=== PATIENT | male | born 1985 | race Caucasian/White ===

== ENCOUNTER 2016-06-27 13:41 | Emergency (ER) | payer OTHER ==
[2016-06-27] MEDS ORDERED: IBUPROFEN 800 MG TABLET PO ONE (14:13)
--- NOTE | 2016-06-27 14:14 | ER Document Report ---
ED Medical Screen (RME) - General Chief Complaint: Chest Pain Stated Complaint: CHEST PAIN Mode of Arrival: Ambulatory Information source: Patient Notes: Patient complains of left-sided chest pain that started last night. Patient states pain is worse if he moves, takes a deep breath or if he touches a certain areas his chest wall. Patient denies any trauma or injury. Patient denies cough or cold symptoms. Patient denies fever. Patient denies any personal history of reflux or anxiety. Patient denies any family history of early heart disease. TRAVEL OUTSIDE OF THE [place] IN LAST 30 DAYS: No - Related Data Allergies/Adverse Reactions: No Known Allergies Allergy (Unverified 06/27/16 14:07) Home Medications: Current Home Medications No Home Medications 06/27/16 [History] Physical Exam - Vital signs Vitals: Temp Pulse Resp BP Pulse Ox 98.4 F 78 16 126/73 H 99 06/27/16 13:52 06/27/16 13:52 06/27/16 13:52 06/27/16 13:52 06/27/16 13:52 - Respiratory Respiratory status: No respiratory distress Chest status: Tender, Pain with deep breathing Chest palpation: Tender Course - Vital Signs Vital signs: Temp Pulse Resp BP Pulse Ox 98.4 F 78 16 126/73 H 99 06/27/16 13:52 06/27/16 13:52 06/27/16 13:52 06/27/16 13:52 06/27/16 13:52
--- NOTE | 2016-06-27 14:50 | ER Document Report ---
HPI - HPI Patient complains to provider of: chest pain Onset: Yesterday Onset/Duration: Gradual Quality of pain: Achy Pain Level: 3 Context: Patient complains of left-sided chest pain that started yesterday. Patient denies any cough or cold symptoms. Patient denies any fever. Patient denies any nausea or vomiting. Patient states pain increases with movement and whenever he touches a certain area on his chest wall. Patient denies any injury. Denies any family history of early heart disease Associated Symptoms: Chest pain. denies: Nonproductive cough, Productive cough , Fever, Nausea, Vomiting Exacerbated by: Movement, Deep breathing Relieved by: Remaining still Similar symptoms previously: No Recently seen / treated by doctor: No - ROS ROS below otherwise negative: Yes Systems Reviewed and Negative: Yes All other systems reviewed and negative - CONSTITUTIONAL Constitutional: DENIES: Fever, Chills - NEURO Neurology: DENIES: Headache, Weakness - CARDIOVASCULAR Cardiovascular: REPORTS: Chest pain - RESPIRATORY Respiratory: DENIES: Trouble Breathing, Coughing - GASTROINTESTINAL Gastrointestinal: DENIES: Abdominal Pain, Nausea, Patient vomiting - MUSCULOSKELETAL Musculoskeletal: DENIES: Extremity pain, Back Pain, Neck Pain - DERM Skin Color: Normal Skin Problems: None Past Medical History - General Information source: Patient - Social History Smoking Status: Current Some Day Smoker Frequency of alcohol use: Occasional Drug Abuse: None Occupation: Buttermaker Family History: Reviewed & Not Pertinent. denies: CAD - Medical History Medical History: Negative Surgical Hx: Negative Vertical Provider Document - CONSTITUTIONAL Agree With Documented VS: Yes Exam Limitations: No Limitations General Appearance: WD/WN, No Apparent Distress - INFECTION CONTROL TRAVEL OUTSIDE OF THE [place] IN LAST 30 DAYS: No - HEENT HEENT: Atraumatic, Normocephalic - NECK Neck: Normal Inspection, Supple. negative: Lymphadenopathy-Left, Lymphadenopathy-Right - RESPIRATORY Respiratory: Breath Sounds Normal, No Respiratory Distress. negative: Chest Non -Tender - Left anterior chest wall tenderness with palpation near left fifth midclavicular area, Rales, Rhonchi, Wheezing O2 Sat by Pulse Oximetry: 99 - CARDIOVASCULAR Cardiovascular: Regular Rate, Regular Rhythm, No Murmur - BACK Back: Normal Inspection - MUSCULOSKELETAL/EXTREMETIES Musculoskeletal/Extremeties: ROSA CEE - NEURO Level of Consciousness: Awake, Alert, Appropriate Motor/Sensory: No Motor Deficit - DERM Integumentary: Warm, Dry, No Rash Course - Vital Signs Vital signs: Temp Pulse Resp BP Pulse Ox 98.4 F 78 16 126/73 H 99 06/27/16 13:52 06/27/16 13:52 06/27/16 13:52 06/27/16 13:52 06/27/16 13:52 - Diagnostic Test Radiology reviewed: Reports reviewed - EKG Interpretation by Me EKG shows normal: Sinus rhythm Discharge - Discharge Clinical Impression: Chest wall pain Condition: Stable Disposition: HOME, SELF-CARE Instructions: Anti-Inflammatory Medication ([facility]), Chest Wall Pain ([facility]), Oral Narcotic Medication ([facility]) Additional Instructions: Return immediately for any new or worsening symptoms Followup with your primary care provider, call tomorrow to make a followup appointment Prescriptions: Hydrocodone/Acetaminophen [[place] 5-325 Tablet] 1 each PO Q4 PRN #10 tablet PRN Reason: Naproxen [Naprosyn 250 Nmg Tablet] 1 tab PO BID #14 tablet Forms: Return to Work Referrals: [facility] [Provider Group] - Follow up as needed
[2016-06-27 14:54] VITALS: BP 125/70
--- NOTE | 2016-06-27 15:02 | EKG REPORT ---
SEVERITY:- NORMAL ECG - SINUS RHYTHM : Confirmed by: Margarito Mar MD 27-Jun-2016 15:02:05
== END 2016-06-27 14:54 | disposition home or self-care (01) ==
LOC: ER 13:41
DX: R07.89 Other chest pain (principal); F17.200 Nicotine dependence, unspecified, uncomplicated
CPT/HCPCS: 71020; 93005; 93010; 99285

== ENCOUNTER → 2018-08-18 | Outpatient (CLI) | payer OTHER ==
--- NOTE | 2018-08-18 13:02 | RADIOLOGY REPORT (SQ) ---
EXAM DESCRIPTION: LUMBAR SPINE COMPLETE COMPLETED DATE/TIME: 08/18/2018 12:50 pm REASON FOR STUDY: ACUTE LEFT-SIDED LOW BACK PAIN WITHOUT SCIATICA M54.5 LOW BACK PAIN COMPARISON: None. NUMBER OF VIEWS: Five views including obliques. TECHNIQUE: AP, lateral, oblique, and sacral radiographic images acquired of the lumbar spine. LIMITATIONS: None. FINDINGS: MINERALIZATION: Normal. SEGMENTATION: Normal. No transitional anatomy. ALIGNMENT: Normal. VERTEBRAE: Maintained height. No fracture or worrisome bone lesion. DISCS: Preserved height. No significant osteophytes or end plate irregularity. POSTERIOR ELEMENTS: Pedicles and facets are intact. No pars defect or posterior arch defects. HARDWARE: None in the spine. PARASPINAL SOFT TISSUES: Normal. PELVIS: Intact as visualized. No fractures or worrisome bone lesions. SI joints intact. OTHER: No other significant finding. IMPRESSION: 1. NORMAL 5 VIEW LUMBAR SPINE. TECHNICAL DOCUMENTATION: JOB ID: [id number] [employer]- All Rights Reserved Reading location - IP/workstation name: [email or web address]
== END ==
LOC: OD 12:01
PROVIDERS: ATTEND Family Medicine
DX: M54.5 Low back pain (principal)
CPT/HCPCS: 72110

== ENCOUNTER 2020-03-07 11:52 | Emergency (ER) | payer SELFPAY ==
[2020-03-07 12:08] VITALS: BP 121/66
--- NOTE | 2020-03-07 12:38 | ER Document Report ---
ED Medical Screen (RME) - General Chief Complaint: Chest Pain Stated Complaint: CHEST PAIN Time Seen by Provider: 03/07/20 12:32 Primary Care Provider: KIM TANG DO [Primary Care Provider] - Follow up as needed Mode of Arrival: Ambulatory Information source: Patient Notes: 34-year-old male presented to ED for chest pain for couple days. He states the pain comes and goes. He states she has been weak and fatigued for the last couple days. He states he is very short of breath sweaty. He states most of the reason is here is because he uses Adderall off the street and it is causing him chest pain.. He states he also vapes uses marijuana and drinks alcohol 3-4 beers a day. He is alert oriented respirations regular nonlabored speaking in full sentences. I have greeted and performed a rapid initial assessment of this patient. A comprehensive ED assessment and evaluation of the patient, analysis of test results and completion of medical decision making process will be conducted by an additional ED providers. TRAVEL OUTSIDE OF THE [place] IN LAST 30 DAYS: No - Related Data Allergies/Adverse Reactions: No Known Allergies Allergy (Unverified 06/27/16 14:07) Past Medical History - Social History Frequency of alcohol use: Social Drug Abuse: Marijuana, Prescription drugs Physical Exam - Vital signs Vitals: Temp Pulse Resp BP Pulse Ox 99.2 F 86 18 121/66 100 03/07/20 12:06 03/07/20 12:06 03/07/20 12:06 03/07/20 12:06 03/07/20 12:06 Course - Vital Signs Vital signs: Temp Pulse Resp BP Pulse Ox 99.2 F 86 18 121/66 100 03/07/20 12:06 03/07/20 12:06 03/07/20 12:06 03/07/20 12:06 03/07/20 12:06 Doctor's Discharge - Discharge Referrals: KIM TANG DO [Primary Care Provider] - Follow up as needed
--- NOTE | 2020-03-07 12:57 | RADIOLOGY REPORT (SQ) ---
EXAM DESCRIPTION: CHEST 2 VIEWS IMAGES COMPLETED DATE/TIME: 03/07/2020 12:44 pm REASON FOR STUDY: Chest pain COMPARISON: 06/27/2016 EXAM PARAMETERS: NUMBER OF VIEWS: two views TECHNIQUE: Digital Frontal and Lateral radiographic views of the chest acquired. RADIATION DOSE: NA LIMITATIONS: none FINDINGS: LUNGS AND PLEURA: No opacities, masses or pneumothorax. No pleural effusion. MEDIASTINUM AND HILAR STRUCTURES: No masses or contour abnormalities. HEART AND VASCULAR STRUCTURES: Heart normal size. No evidence for failure. BONES: No acute findings. HARDWARE: None in the chest. OTHER: No other significant finding. IMPRESSION: 1. No significant interval changes since the prior examination dated 06/27/2016. No acut e findings. TECHNICAL DOCUMENTATION: JOB ID: [id number] 2010 [employer]- All Rights Reserved Reading location - IP/workstation name: [email or web address]
--- NOTE | 2020-03-07 16:44 | EKG REPORT ---
SEVERITY:- ABNORMAL ECG - SINUS RHYTHM RAA, CONSIDER BIATRIAL ABNORMALITIES BORDERLINE T WAVE ABNORMALITIES : Confirmed by: Paolo Raymond MD 07-Mar-2020 16:43:49
== END 2020-03-07 14:11 | disposition left against medical advice (07) ==
LOC: ER 11:52
DX: Z53.20 Procedure and treatment not carried out because of patient's decision for unspecified reasons (principal); R07.9 Chest pain, unspecified; F17.290 Nicotine dependence, other tobacco product, uncomplicated; F12.10 Cannabis abuse, uncomplicated
CPT/HCPCS: 71046; 93005; 93010; 99281

== ENCOUNTER 2020-03-20 13:41 | Emergency (ER) | payer SELFPAY ==
[2020-03-20 14:38] LABS: ABSOLUTE BASOPHILS # (AUTO) 0.1 10^3/uL (0.0-0.2); ABSOLUTE LYMPHOCYTES (AUTO) 1.2 10^3/uL (0.5-4.7); ABSOLUTE MONOCYTES (AUTO) 0.6 10^3/uL (0.1-1.4); ABSOLUTE NEUT (AUTO) 6.9 10^3/uL (1.7-8.2); BASOPHILS % (AUTO) 0.7 % (0-2); HEMATOCRIT 39.5 % (37.9-51.0); HEMOGLOBIN 13.8 g/dL (13.5-17.0); LYMPHOCYTES % (AUTO) 14.2 % (13-45); MEAN CORPUSCULAR HEMOGLOBIN 31.7 pg (27.0-33.4); MEAN CORPUSCULAR HGB CONC 34.9 g/dL (32.0-36.0); MEAN CORPUSCULAR VOLUME 91 fl (80-97); MONOCYTES % (AUTO) 6.7 % (3-13); PLATELET COUNT 416 10^3/uL (150-450); RED BLOOD COUNT 4.35 10^6/uL (4.35-5.55); RED CELL DISTRIBUTION WIDTH 13.5 % (11.5-14.0); SEGMENTED NEUTROPHILS % (AUTO) 78.4 % (42-78); TOTAL CELLS COUNTED % (AUTO) 100 %; WHITE BLOOD COUNT 8.8 10^3/uL (4.0-10.5)
--- NOTE | 2020-03-20 14:55 | ER Document Report ---
ED General - General Chief Complaint: Suicidal Ideation Stated Complaint: SUICIDAL IDEATION Time Seen by Provider: 03/20/20 13:50 Primary Care Provider: KIM TANG DO [Primary Care Provider] - Follow up as needed TRAVEL OUTSIDE OF THE [place] IN LAST 30 DAYS: No - HPI Notes: Chief complaint: Psychiatric evaluation/suicidal ideation and paranoia History of present illness: 34-year-old male in by staff psychiatrist at [facility] currently felt to be expressing suicidal ideation and paranoid ideation. He was sent to this facility for "medical clearance" although I am unable to ascertain what specific medical issue was of concern. This man denies current use of drugs or alcohol. He says he has had a lot of free-floating anxiety recently and has been afraid he was going to take a gun and kill himself. He is evasive when I ask him about current access to a firearm. He lives with his and his 4 children. He has been working as a boiler welder. He is unable to identify any specific stressor which may have led to his current situation. With further discussion he tells me that he thinks someone is "tryi ng to get him" although he cannot tell me specifically who this is. He does have some random conversation about the police trying to kill everybody. He denies auditory hallucinations but says he sometimes sees "some things like snakes". He apparently has taken Adderall in the past for ADHD but is not currently on any psychotropic medication. He denies any history of service. - Related Data Allergies/Adverse Reactions: No Known Allergies Allergy (Verified 03/20/20 14:15) Past Medical History - General Information source: Patient, [facility] Records - Social History Smoking Status: Current Every Day Smoker Chew tobacco use (# tins/day): No Frequency of alcohol use: refused to answer, but confirms drinking Drug Abuse: Prescription drugs Family History: Reviewed & Not Pertinent. denies: CAD - Medical History Medical History: Negative Psychiatric Medical History: Reports: Hx Attention Deficit Hyperactivity Disorder Past Surgical History: Reports: None Review of Systems - Review of Systems Notes: Constitutional: Negative for fever. HENT: Negative for sore throat. Eyes: Negative for visual changes. Cardiovascular: Negative for chest pain. Respiratory: Negative for shortness of breath. Gastrointestinal: Negative for abdominal pain, vomiting or diarrhea. Genitourinary: Negative for dysuria. Musculoskeletal: Negative for back pain. Skin: Negative for rash. Neurological: Negative for headaches, weakness or numbness. 10 point ROS negative except as marked above and in HPI. Physical Exam - Vital signs Vitals: Temp Pulse Resp BP Pulse Ox 98.5 F 81 16 142/86 H 99 03/20/20 14:08 03/20/20 14:08 03/20/20 14:08 03/20/20 14:08 03/20/20 14:08 - Notes Notes: GENERAL: Slender male approximately stated age appearing in no acute distress noted to have very flat affect. SKIN: Good turgor no rashes. HEAD: Normocephalic atraumatic. EYES: PERRLA. EOMI. Conjunctivae and sclerae clear. EARS: CANALS AND TMS CLEAR. NOSE: CLEAR. MOUTH: Moist mucosa. Good dentition. No stridor or edema. No drooling. NECK: Supple. No masses or thyromegaly. No adenopathy. Carotids 2+ without bruits. No JVD. BACK: Symmetrical without tenderness. CHEST: Respirations unlabored. Breath sounds clear and symmetrical. HEART: Regular rhythm. No murmur gallop or rub. ABDOMEN: Soft nontender without masses, organomegaly or rebound. Bowel sounds normally active. No bruits. GENITALIA: Deferred. EXTREMITIES: No edema. No calf tenderness. Cap refill less than 1.5 seconds. Dorsalis pedis and posterior tibial pulses 3+ and symmetrical. NEUROLOGICAL: GCS 15. Alert and oriented x3. Normal gait. Fluent speech. Cranial nerves II through XII intact. Sensorimotor and cerebellar normal. Normal tone. PSYCHIATRIC: Flat affect. Course - Re-evaluation Re-evalutation: 03/20/20 14:58 Patient is placed under IVC petition at this time. 03/20/20 16:02 Medically cleared for inpatient psychiatry admission. - Vital Signs Vital signs: Temp Pulse Resp BP Pulse Ox 98.5 F 81 16 142/86 H 99 03/20/20 14:08 03/20/20 14:08 03/20/20 14:08 03/20/20 14:08 03/20/20 14:08 - Laboratory Result Diagrams: 03/20/20 14:22 03/20/20 14:22 Laboratory results interpreted by me: 03/20/20 03/20/20 14:22 14:22 Seg Neutrophils % 78.4 H Glucose 115 H Discharge - Discharge Clinical Impression: Suicidal ideation, Paranoia (psychosis) Condition: Stable Disposition: PSYCH HOSP/UNIT Referrals: KIM TANG DO [Primary Care Provider] - Follow up as needed
[2020-03-20 14:56] LABS: ALBUMIN 4.4 g/dL (3.5-5.0); ALKALINE PHOSPHATASE 70 U/L (38-126); ANION GAP 10 (5-19); ASPARTATE AMINO TRANSFERASE 21 U/L (17-59); BILIRUBIN,DIRECT 0.2 mg/dL (0.0-0.4); BILIRUBIN,TOTAL 0.4 mg/dL (0.2-1.3); BLOOD UREA NITROGEN 8 mg/dL (7-20); CALCIUM 9.4 mg/dL (8.4-10.2); CARBON DIOXIDE 24 mmol/L (22-30); CHLORIDE 104 mmol/L (98-107); GLUCOSE 115 mg/dL (75-110); POTASSIUM 4.3 mmol/L (3.6-5.0); TOTAL PROTEIN 7.1 g/dL (6.3-8.2)
[2020-03-20 14:59] LABS: ALCOHOL < 10 mg/dL (NONE DETECTED)
[2020-03-20 17:16] LABS: APPEARANCE,URINE CLEAR; BILIRUBIN,URINE NEGATIVE (NEGATIVE); COLOR,URINE YELLOW; GLUCOSE, URINE NEGATIVE (NEGATIVE); KETONES,URINE 20 mg/dL (NEGATIVE); PROTEIN,URINE NEGATIVE (NEGATIVE); URINE SPECIFIC GRAVITY 1.011; UROBILINOGEN,URINE NEGATIVE mg/dL (<2.0)
[2020-03-20 17:37] LABS: URINE AMPHETAMINES SCREEN NEGATIVE; URINE BARBITURATES SCREEN NEGATIVE; URINE BENZODIAZEPINES SCREEN NEGATIVE; URINE COCAINE SCREEN NEGATIVE; URINE METHADONE SCREEN NEGATIVE; URINE PHENCYCLIDINE SCREEN NEGATIVE
[2020-03-20 17:42] LABS: URINE MARIJUANA (THC) SCREEN UNCONFIRMED POSITIVE
--- NOTE | 2020-03-20 22:03 | EKG REPORT ---
SEVERITY:- ABNORMAL ECG - SINUS RHYTHM LEFT VENTRICULAR HYPERTROPHY : Confirmed by: Odalys Palafox MD 20-Mar-2020 22:01:35
[2020-03-20] MEDS ORDERED: MELATONIN 5 MG TABLET PO ONE (22:29)
[2020-03-21] MEDS ORDERED: ACETAMINOPHEN 325 MG TABLET PO ONE (01:03)
--- NOTE | 2020-03-21 12:35 | ER Document Report ---
Doctor's Note Notes: 03/21/20 12:33 Patient's vital signs, previous labs, diagnostic imaging reviewed. Reviewed mental health notes, nurses notes and previous vital signs. Patient is in no distress at this time denies any SI or HI. Denies hallucinations. Denies any current complaints. General: Alert, oriented Heart: Regular rate rhythm, no murmurs rubs or gallops Lungs: Clear to auscultation bilaterally Psych: Normal affect, fluent speech A&P: Pending mental health dispo
[2020-03-21 15:51] VITALS: BP 140/81
--- NOTE | 2020-03-21 21:46 | PSYCHOLOGICAL NOTE ---
Psych Note - Psych Note Date seen by psych provider: 03/21/20 Time seen by psych provider: 11:13 - Evaluation with patient from [id number]. Collateral and discussion regarding plan of care with from [id number]. Psych Note: Patient is a 34 year old male who presented to the Emergency Department yesterday afternoon via EMS from [facility] due to medical clearance related to headache. The [facility] assessment noted patient expressed suicidal ideation saying he was going to blow his brains out or end it all, had been arguing with , has been without Adderall for the past 3 days (been taking for 1-2 years, not prescribed), thought a snake went into his pants and bit him, and thought people were after him. Patient was put on a 24 Hour Petition for Evaluation. Patient reported "my father, mother and took me to [facility], I went voluntarily, I didn't feel right in my head which had me concerned, but once there I realized it wasn't what I needed, I have never been hospitalized before." He identified he felt like he was in Group Home there. He admitted to making suicidal statements to blow his brains out, stated that was how he felt in the moment, denied owning or having access to firearms, and denied previous suicide attempts or self harm. He denied current suicidal and homicidal ideation. He admitted he thought he was bit by a snake, noted it was a dream, and stated he's never experienced anything like that before with the exception for when he was in Group Home. Patient identified he was in Group Home for selling Narcotics, denied any current legal issues or being on probation. He denied being on any medication currently or linked to mental health services. Urine drug screen was positive for cannabis and patient admitted "it WAS regular use." Patient stated he was upset "mostly about his job, not being able to provide for his family, but a job opportunity has presented itself and he is feeling better about the situation." Patient was alert and oriented to self, person, place, time and situation. Mood was euthymic with congruent affect. He denied current suicidal and homicidal ideation, admitted to making the suicidal statement, denied owning or having access to firearms and denied previous suicide attempts. Patient did not appear to be responding to internal stimuli as evidenced by fair eye contact, answering questions appropriately when addressed, carrying on dialogue conversation and being engaged in the evaluation. Thought processes were linear and organized. Conversational speech was within normal limits for rate, tone and prosody. Intellectual abilities are estimated to be average. Insight, judgment and impulse control were fair as evidenced by talking about thinking of his children and the children in the family and improved mental statue (no psychosis, no suicidal ideation) and acknowledging trigger (job, not providing for family). From [id number] spoke to patient's Salome ([phone], patient provided contact information). She stated she dumped the Adderall in the toilet Tuesday. She noted patient had told her he was trying to ween himself off. She confirmed no access to firearms. She stated she was on her way to work but would call patient's parents and one of them would pick patient up. She was made aware patient would have a resource sheet with crisis numbers, local outpatient mental health agencies and walk in times and the local crisis center where voluntary and involuntary inpatient services are available. Clinical Presentation: Psychosis- hallucinations Suicidal Ideation Polysubstance Use Cannabis Amphetamine -not had any in 3 days Impression/Plan: Patient is cleared from acute psychiatric services. Recommendation to RESCIND 24 Hour Petition for Evaluation. He denied current suicidal and homicidal ideation, admitted to making suicidal statement and denied previous suicide attempts. He and denied access to firearms. He was able to identify he thought the snake bit him, it was like a dream, it was not real. He did not appear to be responding to internal stimuli given fair eye contact, answering questions appropriately, carrying on dialogue conversation and being engaged in evaluation. He talked about stress and trigger being his job situation and not being able to support his family. Included in plan of care. contacted patient's parents to provide transportation. Provided patient with the outpatient mental health resource sheet ( was made fuller of this resource sheet and information provided) which highlighted both mobile crisis numbers, documented walk in times for both [facility] and [facility] for outpatient mental health services, and documented [facility] contact information for voluntary and involuntary inpatient treatment. Consulted with Dr. Duffy regarding the management and care of patient. ED Physician in agreement with recommendations.
== END 2020-03-21 16:01 | disposition home or self-care (01) ==
LOC: ER 13:41
DX: R45.851 Suicidal ideations (principal); F22 Delusional disorders; F15.10 Other stimulant abuse, uncomplicated; F17.200 Nicotine dependence, unspecified, uncomplicated
CPT/HCPCS: 93005; 99285; 36415; 80307 ×2; 85025; 80053; 81001; 93010; J3490